=== PATIENT | male | born 1970 | race Caucasian/White ===

== ENCOUNTER 2024-04-16 08:11 | Emergency (ER) | payer SELFPAY ==
[~2024-04-16] VITALS: Ht 180.3 cm; Wt 95.3 kg
[2024-04-16 08:13] VITALS: BP 154/100; PULSE 84; RESP 20; TEMP 98.4
--- NOTE | 2024-04-16 08:27 | ERN ---
General Chief Complaint: Diarrhea Stated Complaint: ABDOMINAL PAIN Time Seen by MD: 08:13 Source: patient History of Present Illness Initial Comments PATIENT IS A 54-YEAR-OLD MALE COMING IN TO BE EVALUATED FOR ABDOMINAL DISCOMFORT AND DIARRHEA. PATIENT STATES THE SYMPTOMS HAVE BEEN ONGOING FOR ABOUT 3-4 DAYS. 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 HEAD/FACE: NO SIGNS OF TRAUMA. EENT: NO EYE PAIN, NO BLURRED VISION, NO TEARING, NO DOUBLE VISION, NO EAR PAIN, NO EAR DISCHARGE, NO NOSE PAIN, NO NASAL CONGESTION, NO THROAT PAIN, NO THROAT SWELLING, NO MOUTH PAIN. RESPIRATORY: NO COUGH, NO ORTHOPNEA, NO SOB, NO STRIDOR, NO WHEEZING. CARDIOVASCULAR: NO CHEST PAIN, NO EDEMA, NO PALPITATIONS, NO SYNCOPE. GASTROINTESTINAL/ABDOMINAL: NO ABDOMINAL PAIN, NO CONSTIPATION, NO DIARRHEA, NO NAUSEA, NO VOMITING. GENITOURINARY: NO ABNORMAL DISCHARGE, NO DYSURIA, NO FREQUENT URINATION, NO HEMATURIA. NO COMPLAINTS OF PAIN IN THE GENITALS. MUSCULOSKELETAL: NO BACK PAIN, NO GOUT, NO JOINT PAIN, NO JOINT SWELLING, NO MUSCLE PAIN, NO MUSCLE STIFFNESS, NO NECK PAIN. INTEGUMENTARY: NO CHANGE IN COLOR, NO CHANGE IN HAIR/NAILS, NO DRYNESS, NO LESION, NO LUMPS, NO RASH. NEUROLOGICAL/PSYCH: NO ANXIETY, NOT DEPRESSED, NO EMOTIONAL PROBLEM, NO HEADACHE, NO NUMBNESS, NO PRE-EXISTING DEFICIT, NO HISTORY OF SEIZURES, NO TREMORS, NO WEAKNESS. HEMATOLOGIC/LYMPHATIC: NOT ANEMIC, NO HISTORY OF BLOOD CLOTS, NO APPARENT BLEEDING, NO BRUISING, GLANDS NOT SWOLLEN. ALL SYSTEMS NEGATIVE, EXCEPT NOTED. Physical Exam Physical Exam Dictation VITAL SIGNS: REVIEWED. GENERAL APPEARANCE: ALERT, ORIENTED X3, NO ACUTE DISTRESS, OBESE. HEAD AND FACE: NON-TRAUMATIC. EYES: PERRL, PINK CONJUNCTIVAS, EYELID NO TRAUMA, ANTERIOR CHAMBER CLEAR. EARS: PINNAS INTACT AND NO SIGNS OF TRAUMA OR ERYTHEMA. EAR CANALS CLEAR AND NO DISCHARGE. TMS NO ERYTHEMA. NOSE: NO DISCHARGE, NO BLEEDING. OROPHARYNX: MOUTH NORMAL, TEETH NO CARIES, TONGUE PINK. PHARYNX CLEAR, NO ERYTHEMA. TONSILS NO EXUDATES, NO ABSCESSES NOTED. MUCOUS MEMBRANE MOIST. NECK: SUPPLE, NON-TENDER, NO THYROMEGALY, NO MASSES, NO JVD, NO BRUITS. BREAST: DEFERRED. CHEST: NO TENDERNESS, NO CREPITUS, NO PARADOXICAL MOVEMENT, NO RETRACTIONS. LUNGS: CLEAR, WELL-VENTILATED, SYMMETRIC, NO RALES, NO WHEEZING, NO RHONCHI, NO STRIDOR, GOOD BREATH SOUNDS BILATERALLY. HEART: REGULAR RATE, REGULAR RHYTHM, NO MURMUR, NO GALLOPS. VASCULAR: NO PERIPHERAL EDEMA. ABDOMEN: SOFT, POSITIVE BOWEL SOUNDS, NONDISTENDED, NO GUARDING, NONTENDER, NO REBOUND, NO MASSES NO HEPATOMEGALY, NO SPLENOMEGALY, NO CHANG'S SIGN, NO HERNIAS. RECTAL: DEFERRED. GENITAL: DEFERRED. NEUROLOGICAL: NORMAL SPEECH, GROSS MOTOR FUNCTION INTACT, GROSS SENSORY FUNCTION INTACT. MUSCULOSKELETAL: NECK NONTENDER, FULL RANGE OF MOTION, BACK NONTENDER, FULL RANGE OF MOTION. EXTREMITIES: NONTENDER, FULL RANGE OF MOTION. SKIN: COLOR PINK, DRY, NO TURGOR, NO RASH, NO LACERATIONS, NO ABRASIONS, NO CONTUSIONS. LYMPHATICS: DEFERRED. Results Laboratory and Microbiology Lab and Micro Result Laboratory Tests Test 04/16/24 08:43 White Blood Count 6.2 K/uL (4.8-10.8) Red Blood Count 5.09 MIL/uL (4.50-6.20) Hemoglobin 15.6 g/dL (14.0-18.0) Hematocrit 47.1 % (42-54) Mean Corpuscular Volume 92.5 fL (79-99) Mean Corpuscular Hemoglobin 30.6 pg (27.0-33.0) Mean Corpuscular Hemoglobin Concent 33.1 g/dL (32.0-36.0) Red Cell Distribution Width 12.4 % (11.0-15.5) Platelet Count 267 K/uL (130-400) Mean Platelet Volume 9.2 fL (7.5-10.5) Immature Granulocyte % (Auto) 0.5 % (0-1) Neutrophils (%) (Auto) 57.5 % (40.0-77.0) Lymphocytes (%) (Auto) 29.6 % (21.0-51.0) Monocytes (%) (Auto) 7.9 % (3.0-13.0) Eosinophils (%) (Auto) 3.4 % (0.0-8.0) Basophils (%) (Auto) 1.1 % (0.0-5.0) Neutrophils # (Auto) 3.6 K/uL (1.8-7.7) Lymphocytes # (Auto) 1.9 K/uL (1.0-4.8) Monocytes # (Auto) 0.5 K/uL (0.1-1.0) Eosinophils # (Auto) 0.21 K/uL (0.00-0.70) Basophils # (Auto) 0.07 K/uL (0.00-0.20) Absolute Immature Granulocyte (auto 0.03 K/uL (0-1) Nucleated Red Blood Cells 0.0 % (0.0-0.19) Sodium Level 134 mmol/L (136-145) L Potassium Level 4.4 mmol/L (3.5-5.1) Chloride Level 100 mmol/L (101-111) L Carbon Dioxide Level 26 mmol/L (21-32) Blood Urea Nitrogen 9 mg/dL (7-18) Creatinine 0.9 mg/dL (0.5-1.3) Glomerular Filtration Rate Calc 101 mL/min (>90) Random Glucose 126 mg/dL (70-105) H Total Calcium 9.1 mg/dL (8.5-10.1) Total Bilirubin 0.5 mg/dL (0.2-1.0) Aspartate Amino Transf (AST/SGOT) 17 U/L (10-37) Alanine Aminotransferase (ALT/SGPT) 18 U/L (12-78) Alkaline Phosphatase 74 U/L (50-136) Total Creatine Kinase 139 U/L (21-232) Total Protein 6.7 g/dL (6.0-8.3) Albumin 3.6 g/dL (3.5-5.0) Lipase 31 U/L (16-77) Labs Reviewed?: Yes MDM MDM: DIFFERENTIAL DIAGNOSIS:vIRAL GASTROENTERITIS, POSSIBLE HEPC INFECTION PATIENT IS A 54-YEAR-OLD MALE COMING IN TO BE EVALUATED FOR ABNORMAL LABS. PATIENT STATES HE WAS DONATING PLASMA AND THEY TOLD HIM HE MIGHT BE POSITIVE FOR HEPATITIS-C FOLLOW UP WITH PCP ON THE ACUTE PHASE OF IT NO INFLAMMATION OF THE LIVER IS NOTED NOW. PATIENT IS NOT COMPLAINING OF ANY ABDOMINAL PAIN. PATIENT WILL BE DISCHARGED IN STABLE CONDITION. ED Course Orders Procedure Category Date Status Time Cbc With Differential LAB 04/16/24 Complete 08:15 Comprehensive LAB 04/16/24 Complete Metabolic Panel 08:15 Lactated Ringers PHA 04/16/24 Complete 1000ml (Lactated 08:30 Pantoprazole 40mg Inj PHA 04/16/24 Complete (Protonix 40mg Inj 08:30 Creatine Kinase, Total LAB 04/16/24 Complete 08:15 Lipase LAB 04/16/24 Complete 08:15 Current Medications Medications (Trade) Dose Ordered Sig/Ashlee Route PRN Reason Start Time Stop Time Status Last Admin Dose Admin Lactated Ringer's 1,000 ml @ 0 mls/hr ONCE ONCE IV 04/16/24 08:30 04/16/24 08:31 DC Pantoprazole Sodium (PROTonix 40MG INJ) 40 mg ONCE ONCE IVP 04/16/24 08:30 04/16/24 08:31 DC Vital Signs Date Time Temp Pulse Resp B/P (MAP) Pulse Ox O2 Delivery O2 Flow Rate FiO2 04/16/24 08:13 98.4 84 20 154/100 98 Room Air 0 DX & DISP Disposition: Discharge Departure Impression: Primary Impression: Abnormal laboratory test result Condition: Stable Referrals: SELF,REFERRAL (PCP) LIANET JONES MD, LUIS A MD REYNA, ISABEL MD Apr 16, 2024 08:27
[2024-04-16 08:57] LABS: BASOPHILS # (AUTO) 0.07 K/uL (0.00-0.20); BASOPHILS % (AUTO) 1.1 % (0.0-5.0); EOSINOPHILS # (AUTO) 0.21 K/uL (0.00-0.70); EOSINOPHILS % (AUTO) 3.4 % (0.0-8.0); HEMATOCRIT 47.1 % (42-54); IMMATURE GRANULOCYTE ABSOLUTE 0.03 K/uL (0-1); LYMPHOCYTES # (AUTO) 1.9 K/uL (1.0-4.8); LYMPHOCYTES % (AUTO) 29.6 % (21.0-51.0); MEAN CORPUSCULAR HEMOGLOBIN 30.6 pg (27.0-33.0); MEAN CORPUSCULAR HGB CONC 33.1 g/dL (32.0-36.0); MEAN CORPUSCULAR VOLUME 92.5 fL (79-99); MONOCYTES # (AUTO) 0.5 K/uL (0.1-1.0); MONOCYTES % (AUTO) 7.9 % (3.0-13.0); NEUTROPHILS # (AUTO) 3.6 K/uL (1.8-7.7); NEUTROPHILS % (AUTO) 57.5 % (40.0-77.0); PLATELET COUNT (AUTO) 267 K/uL (130-400); RED BLOOD CELL COUNT(AUTO) 5.09 MIL/uL (4.50-6.20); RED CELL DISTRIBUTION WIDTH 12.4 % (11.0-15.5); WHITE BLOOD COUNT (AUTO) 6.2 K/uL (4.8-10.8)
[2024-04-16 09:05] LABS: CREATININE 0.9 mg/dL (0.5-1.3); POTASSIUM 4.4 mmol/L (3.5-5.1)
[2024-04-16 09:10] LABS: ALBUMIN 3.6 g/dL (3.5-5.0); BILIRUBIN,TOTAL 0.5 mg/dL (0.2-1.0); TOTAL PROTEIN, SERUM 6.7 g/dL (6.0-8.3)
[2024-04-16] MEDS: LACTATED RINGERS 1000ML 1,000 ML IV ONE (09:46)
[2024-04-16] MEDS: PANTOPrazole 40 MG/VIAL IVP ONE (09:46)
== END 2024-04-16 10:56 | disposition home or self-care (01) ==
LOC: EDH 08:11
DX: R79.9 Abnormal finding of blood chemistry, unspecified (principal); Z98.890 Other specified postprocedural states
CPT/HCPCS: 99283; 96374; 96361; 82550; 80053; 83690; 85025; 36415; J7120; J2470

== ENCOUNTER 2025-02-03 11:43 | Emergency (ER) | payer OTHER ==
[~2025-02-03] VITALS: Ht 180.3 cm; Wt 97.5 kg
--- NOTE | 2025-02-03 11:52 | ERN ---
ED Note History of Present Illness Stated Complaint: LEFT FOOT Chief Complaint: FOOT INJURY/PAIN Time Seen by MD: 11:47 Dictation: PATIENT IS A 54-YEAR-OLD MALE COMING IN HERE WITH TWO COMPLAINTS 1ST COMPLAINT IS HE HAS A ITCHY RASH THAT IS DIFFUSE AND DISCRETE TO HIS BODY HANDS BACK. STATES HE HAS HAD THE RASH FOR SEVERAL DAYS HE STATES HE HAS BEEN TAKING BENADRYL BUT IT DOES NOT HELP. SECOND COMPLAINT IS THAT HE HAS LEFT FOOT PAIN SWELLING FOR THE LAST TWO DAYS. HE DENIES TRAUMA OR FALLS NO HISTORY OF GOUT. HE DOES STATE HE IS HOMELESS AND LIVES UNDER A LOCAL BRIDGE. NO PRIMARY CARE DOCTOR. 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 13 POINT REVIEW OF SYSTEMS ASSESSED AND ALL NEGATIVE EXCEPT FOR ABOVE. Initial Vital Sign VS Vital Signs Date Time Temp Pulse Resp B/P (MAP) Pulse Ox O2 Delivery O2 Flow Rate FiO2 02/03/25 11:46 97.7 99 18 120/81 99 Room Air 0 02/03/25 11:51 21 Physical Exam Dictation VITAL SIGNS REVIEWED GENERAL APPEARANCE: ALERT, ORIENTED X 3, MILD ACUTE DISTRESS, WELL DEVELOPED, NOURISHED. HEAD AND FACE: NON-TRAUMATIC. EYES: PERRL, PINK CONJUNCTIVAS, EYELID NO TRAUMA, ANTERIOR CHAMBER WITH ARCUS SENILIS. EARS: PINNAS INTACT AND NO SIGNS OF TRAUMA OR ERYTHEMA EAR CANALS CLEAR AND NO DISCHARGE TM NO ERYTHEMA NOSE: NO DISCHARGE, NO BLEEDING. OROPHARYNX: MOUTH NORMAL, TONGUE PINK, PHARYNX CLEAR,NO ERYTHEMA, TONSILS NO EXUDATES, NO ABSCESSES NOTED, MUCOUS MEMBRANE MOIST NECK: SUPPLE, NON-TENDER, NO THYROMEGALY, NO MASSES, NO JVD, NO BRUITS BREAST:DEFERRED CHEST:NO TENDERNESS, NO CREPITUS, NO PARADOXICAL MOVEMENT, NO RETRACTIONS LUNGS:CLEAR, WELL-VENTILATED, SYMMETRIC, NO RALES, NO WHEEZING, NO RHONCHI, NO STRIDOR, GOOD BREATH SOUNDS BILATERALLY HEART: REGULAR RATE, REGULAR RHYTHM, NO MURMUR, NO GALLOPS VASCULAR: NO PERIPHERAL EDEMA, ABDOMEN: SOFT, POSITIVE BOWEL SOUNDS, NONDISTENDED, NO GUARDING, NONTENDER, NO REBOUND, NO MASSES NO HEPATOMEGALY, NO SPLENOMEGALY, NO CHANG'S SIGN, NO HERNIAS. RECTAL: DEFERRED GENITAL: DEFERRED NEUROLOGICAL: NORMAL SPEECH, MOTOR FUNCTION INTACT, SENSORY FUNCTION INTACT MUSCULOSKELETAL: NECK NONTENDER, FULL RANGE OF MOTION, BACK NONTENDER, FULL RANGE OF MOTION, EXTREMITIES: FULL RANGE OF MOTION WITH MILD TENDERNESS NOTED TO DIFFUSE FOOT. NO ERYTHEMA NO SWELLING NO TENDERNESS SKIN: COLOR PINK, DRY, DISCRETE AND DIFFUSE RASH TO LEGS HANDS WEBS OF FINGERS AND TOES THORAX. LYMPHATIC: DEFERRED Results (Laboratory/Radiology) Laboratory/Radiology LEFT FOOT X-RAY NEGATIVE Labs Reviewed?: Yes ED Course ED Course Orders Procedure Category Date Status Time Foot Comp 3+Vws Lt RAD 02/03/25 Resulted 11:49 Ibuprofen 800 Mg Tab PHA 02/03/25 Complete (Motrin) 12:00 Current Medications Medications (Trade) Dose Ordered Sig/Ashlee Route PRN Reason Start Time Stop Time Status Last Admin Dose Admin Ibuprofen (moTRIN) 800 mg ONCE ONCE PO 02/03/25 12:00 02/03/25 12:01 DC Vital Signs Date Time Temp Pulse Resp B/P (MAP) Pulse Ox O2 Delivery O2 Flow Rate FiO2 02/03/25 11:51 97.7 99 18 120/81 99 Room Air* 0 21 02/03/25 11:46 97.7 99 18 120/81 99 Room Air 0 1250/SPOKE WITH PATIENT AT LENGTH AND HE IS AWARE THAT HE HAS MUSCLE PAIN HOWEVER HE IS ALSO AWARE HE HAS GOT SCABIES WE WILL PROVIDE STRONG RECTAL AND HAVE HIM FOLLOW UP WITH HIS DOCTOR NEEDED. Medical Decision Making MDM MEDICAL DISCHARGE MAKING BASED ON X-RAY OF LEFT FOOT EMPIRIC TREATMENT FOR MUSCULOSKELETAL PAIN WE WILL TREAT PATIENT EMPIRICALLY FOR SCABIES INFESTATION. X-RAY NEGATIVE PATIENT DISCHARGED HOME WITH A STROMECTROL/MOTRIN DX & DISP Disposition: Discharge Departure Impression: Primary Impression: Left foot pain Additional Impression: Scabies infestation Condition: Stable Scripts Ibuprofen (Ibuprofen 800 mg Tab) 800 Mg Tab 800 MG PO Q8H PRN for fever or pain, #30 TAB 0 Refills Prov: SUDHAKAR MACKAY NP 02/03/25 Ivermectin (Stromectol) 3 Mg Tab 6 TAB PO ONCE for SCABIES, #12 TAB 0 Refills TAKE SIX TABLETS X1 DOSE, MAY REPEAT IN 10 DAYS. Prov: SUDHAKAR MACKAY NP 02/03/25 Additional Instructions: FOLLOW-UP WITH PRIMARY CARE PROVIDER IN 1 TO 2 DAYS. TAKE MEDICATIONS DIRECTED HERE IN THE EMERGENCY ROOM. OKAY TO CONTINUE HOME MEDICATIONS UNLESS OTHERWISE DISCUSSED DURING YOUR VISIT IN THE EMERGENCY ROOM TODAY. RETURN TO YOUR NEAREST EMERGENCY ROOM IF SYMPTOMS WORSEN OR IF THERE IS NO IMPROVEMENT. CALL 911 IF YOU NEED IMMEDIATE ASSISTANCE. TAKE TYLENOL OR MOTRIN [id number] NEEDED AND IF NO CONTRAINDICATIONS ARE PRESENT. INCREASE ORAL HYDRATION. A WOUND CULTURE OR URINE CULTURE WAS ORDERED HERE IN THE EMERGENCY ROOM DEPARTMENT PLEASE FOLLOW-UP WITH PRIMARY CARE PROVIDER AND ADVISE THEM TO GET REPEAT PORTS FROM OUR FACILITY. IF YOU HAD ANY SHINE WRAP/SPLINTS THAT WERE APPLIED HERE, PLEASE DO NOT REMOVE THEM UNTIL YOU SEE YOUR PRIMARY CARE OR SPECIALTY. TAKE STRONG MECLIZINE DIRECTED FOR YOUR SCABIES, MAY REPEAT THE DOSE IN 10 DAYS. FOLLOW UP WITH YOUR PRIMARY CARE DOCTOR NEEDED, DIET AND ACTIVITY TOLERATED. Referrals: SELF,REFERRAL (PCP) Time of Disposition: 12:50 I have reviewed the case, and I agree with, Diagnosis and Plan SUDHAKAR MACKAY NP Feb 03, 2025 11:52
--- NOTE | 2025-02-03 12:17 | HMCIMG ---
FOOT COMP 3+VWS LT REASON: TRAUMA PAIN AND SWELLING TECHNIQUE: 3 views were obtained. FINDINGS: There is no evidence of fracture or dislocation. There is no joint effusion. The soft tissues appear unremarkable. There is no evidence of a radiopaque foreign body. IMPRESSION: No acute findings.
[2025-02-03] MEDS ORDERED: IVER3 PO (12:51)
[2025-02-03] MEDS ORDERED: IBUP-2077 PO (12:51)
[2025-02-03 13:07] VITALS: BP 120/81; PULSE 99; RESP 18; TEMP 97.7; O2SAT 99
== END 2025-02-03 13:15 | disposition home or self-care (01) ==
LOC: EDH 11:43
DX: M79.672 Pain in left foot (principal); B86 Scabies; Z98.890 Other specified postprocedural states
CPT/HCPCS: 73630; 99283

== ENCOUNTER 2025-03-15 12:47 | Emergency (ER) | payer OTHER ==
[~2025-03-15] VITALS: Ht 180.3 cm; Wt 114.3 kg
[~2025-03-15 12:47] MED LIST: IBUP-2077 PO; IVER3 PO
[2025-03-15 12:49] VITALS: BP 155/92; PULSE 84; RESP 20; TEMP 98
--- NOTE | 2025-03-15 13:06 | ERN ---
ED Note History of Present Illness Stated Complaint: BILATERAL LOWER EXTREMITY ITCHING AND MED REFILL Chief Complaint: Itching Time Seen by MD: 12:56 Dictation: PATIENT IS A 54-YEAR-OLD MALE COMING IN TODAY WITH COMPLAINTS OF AN ITCHY RASH HE HAS HAD FOR MORE THAN A MONTH. HE WAS DIAGNOSED AT [facility] A MONTH AGO WITH SCABIES INFESTATION HE STATES HE DID NOT GET THE MEDICATIONS FELL BECAUSE HE DID NOT HAVE VERY MUCH MONEY HE SAID THE PHARMACY GAVE HIM JUST A COUPLE OF THE TABLETS. Allergies: Coded Allergies: No Known Drug Allergies (Unverified Allergy, Unknown, 04/16/24) Home Meds Active Scripts Ibuprofen (Ibuprofen 800 mg Tab) 800 Mg Tab, 800 MG PO Q8H PRN for fever or pain, #30 TAB 0 Refills Prov:SUDHAKAR MACKAY 02/03/25 Ivermectin (Stromectol) 3 Mg Tab, 6 TAB PO ONCE for SCABIES, #12 TAB 0 Refills TAKE SIX TABLETS X1 DOSE, MAY REPEAT IN 10 DAYS. Prov:SUDHAKAR MACKAY 02/03/25 Past Medical History Past Medical History: No Pertinent History Additional Past Medical Hx: denies pmhx Surgical History: Other Surgical History Other: hernia repair RN Note Reviewed/Agreed w/PFSH: Yes Review of System Dictation CONSTITUTIONAL: NEGATIVE EXCEPT FOR HPI HEAD/FACE: NEGATIVE EXCEPT FOR HPI EENT: NEGATIVE EXCEPT FOR HPI RESPIRATORY: NEGATIVE EXCEPT FOR HPI GASTROINTESTINAL/ABDOMINAL: NEGATIVE EXCEPT FOR HPI GENITOURINARY: NEGATIVE EXCEPT FOR HPI MUSCULOSKELETAL: NEGATIVE EXCEPT FOR HPI INTEGUMENTARY: NEGATIVE EXCEPT FOR HPI NEUROLOGICAL/PSYCH: NEGATIVE EXCEPT FOR HPI PRURITIC RASH DIFFUSE DISCRETE HEMATOLOGIC/LYMPHATIC: NEGATIVE EXCEPT FOR HPI ALL SYSTEMS NEGATIVE, EXCEPT NOTED ABOVE. 13 POINT REVIEW OF SYSTEMS ASSESSED AND ALL NEGATIVE EXCEPT FOR ABOVE. Initial Vital Sign VS Vital Signs Date Time Temp Pulse Resp B/P (MAP) Pulse Ox O2 Delivery O2 Flow Rate FiO2 03/15/25 12:49 98.1 84 20 155/92 97 Room Air 0 Physical Exam Dictation VITAL SIGNS REVIEWED GENERAL APPEARANCE: ALERT, ORIENTED X 3, MILD ACUTE DISTRESS, WELL DEVELOPED, NOURISHED. HEAD AND FACE: NON-TRAUMATIC. EYES: PERRL, PINK CONJUNCTIVAS, EYELID NO TRAUMA, ANTERIOR CHAMBER WITH ARCUS SENILIS. EARS: PINNAS INTACT AND NO SIGNS OF TRAUMA OR ERYTHEMA EAR CANALS CLEAR AND NO DISCHARGE TM NO ERYTHEMA NOSE: NO DISCHARGE, NO BLEEDING. OROPHARYNX: MOUTH NORMAL, TONGUE PINK, PHARYNX CLEAR,NO ERYTHEMA, TONSILS NO EXUDATES, NO ABSCESSES NOTED, MUCOUS MEMBRANE MOIST NECK: SUPPLE, NON-TENDER, NO THYROMEGALY, NO MASSES, NO JVD, NO BRUITS BREAST:DEFERRED CHEST:NO TENDERNESS, NO CREPITUS, NO PARADOXICAL MOVEMENT, NO RETRACTIONS LUNGS:CLEAR, WELL-VENTILATED, SYMMETRIC, NO RALES, NO WHEEZING, NO RHONCHI, NO STRIDOR, GOOD BREATH SOUNDS BILATERALLY HEART: REGULAR RATE, REGULAR RHYTHM, NO MURMUR, NO GALLOPS VASCULAR: NO PERIPHERAL EDEMA, ABDOMEN: SOFT, POSITIVE BOWEL SOUNDS, NONDISTENDED, NO GUARDING, NONTENDER, NO REBOUND, NO MASSES NO HEPATOMEGALY, NO SPLENOMEGALY, NO CHANG'S SIGN, NO HERNIAS. RECTAL: DEFERRED GENITAL: DEFERRED NEUROLOGICAL: NORMAL SPEECH, MOTOR FUNCTION INTACT, SENSORY FUNCTION INTACT MUSCULOSKELETAL: NECK NONTENDER, FULL RANGE OF MOTION, BACK NONTENDER, FULL RANGE OF MOTION, EXTREMITIES: NONTENDER, FULL RANGE OF MOTION SKIN: COLOR PINK, DISCRETE MACULAR RASH PRURITIC INCLUDING THE WEBS OF HIS FINGERS IN HIS TOES. LYMPHATIC: DEFERRED Results (Laboratory/Radiology) Labs Reviewed?: Yes ED Course ED Course Vital Signs Date Time Temp Pulse Resp B/P (MAP) Pulse Ox O2 Delivery O2 Flow Rate FiO2 03/15/25 12:49 98.1 84 20 155/92 97 Room Air 0 1300/BE TREATED. EMPIRICALLY FOR ACUTE SCABIES INFESTATION AND NONCOMPLIANCE. HE WILL BE GIVEN DECADRON FOR ITCHING AND IVERMECTIN Medical Decision Making MDM MEDICAL DISCHARGE MAKING BASED ON EMPIRIC TREATMENT FOR SCABIES AND ITCHING. PATIENT GIVEN DECADRON TOO EASY ITCHING PRESCRIBED IVERMECTIN AND BENADRYL. TOLD TO WASH HIS LINENS AND HIS BED CLOSED AFTER HE TREATS HIM DX & DISP Disposition: Discharge Departure Impression: Primary Impression: Scabies infestation Condition: Stable Scripts Ivermectin (Stromectol) 3 Mg Tab 6 TAB PO ONCE, #12 TAB 0 Refills TAKE SIX TABLETS BY MOUTH X1 DOSE. MAY REPEAT DOSE IN 10 DAYS. 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 TAKE MEDICATIONS DIRECTED HERE IN THE EMERGENCY ROOM. OKAY TO CONTINUE HOME MEDICATIONS UNLESS OTHERWISE DISCUSSED DURING YOUR VISIT IN THE EMERGENCY ROOM TODAY. RETURN TO YOUR NEAREST EMERGENCY ROOM IF SYMPTOMS WORSEN OR IF THERE IS NO IMPROVEMENT. C ALL 911 IF YOU NEED IMMEDIATE ASSISTANCE. TAKE TYLENOL OR MOTRIN [id number] NEEDED AND IF NO CONTRAINDICATIONS ARE PRESENT. INCREASE ORAL HYDRATION. A WOUND CULTURE OR URINE CULTURE WAS ORDERED HERE IN THE EMERGENCY ROOM DEPARTMENT PLEASE FOLLOW-UP WITH PRIMARY CARE PROVIDER AND ADVISE THEM TO GET REPEAT PORTS FROM OUR FACILITY. IF YOU HAD ANY SHINE WRAP/SPLINTS THAT WERE APPLIED HERE, PLEASE DO NOT REMOVE THEM UNTIL YOU SEE YOUR PRIMARY CARE OR SPECIALTY. TAKE IVERMECTIN AND DIRECTED X1 DOSE. MAY REPEAT SIX TABLETS IN 10 DAYS. SUGGEST DIPHENHYDRAMINE/BENADRYL 50 MG [id number] EVERY 6 HOURS NEEDED FOR ITCHING. BE SURE TO WASH YOUR CLOSED AND LANDED ON YOUR BED AFTER YOU TREAT HER Referrals: SELF,REFERRAL (PCP) Time of Disposition: 13:03 I have reviewed the case, and I agree with, Diagnosis and Plan SUDHAKAR MACKAYP Mar 15, 2025 13:06
== END 2025-03-15 13:42 | disposition home or self-care (01) ==
LOC: EDH 12:47
DX: B86 Scabies (principal); Z79.899 Other long term (current) drug therapy; Z98.890 Other specified postprocedural states
CPT/HCPCS: 99283